=== PATIENT | female | born 1995 | race Caucasian/White ===

== ENCOUNTER 2016-08-29 19:08 | Emergency (ER) | payer OTHER ==
[~2016-08-29] VITALS: Ht 162.6 cm; Wt 52.0 kg
[~2016-08-29 19:08] MED LIST: PENVK500 PO
[2016-08-29 19:09] VITALS: BP 124/74; PULSE 79; RESP 14; TEMP 98; O2SAT 98
[2016-08-29 22:31] LABS: ANION GAP 8 MEQ/L (5-15); AST (GOT) 13 U/L (16-38); BICARBONATE 26.6 MEQ/L (21.0-32.0); BLOOD UREA NITROGEN 19 MG/DL (7-18); CHLORIDE 105 MEQ/L (98-107); GLOMERULAR FILTRATION RATE 84 ML/MIN (>89); POTASSIUM 3.6 MEQ/L (3.5-5.1); SODIUM (NA) 140 MEQ/L (136-145)
[2016-08-29] MEDS ORDERED: SODIUM CHLOR 0.9% 1000 ML INJ 1,000 ML IV SCH (22:32)
--- NOTE | 2016-08-29 22:32 | PD ---
HPI Chief Complaint: Numbness/Tingling Time Seen by Provider: 22:23 Travel History International Travel<30 days: No Contact w/Intl Traveler<30days: No Traveled to known affect area: No History of Present Illness HPI 21-year-old female coming in with 1-2 week history of numbness to her posterior lower legs, and occasionally both forearms off and on for the past 2 weeks. Patient feels is becoming more frequent. Patient also states episodes of lightheadedness especially after changing position. Patient denies headache , back pain, or trauma. Patient has no history of thyroid issues in the past. Patient does state she eats once daily. Patient states she checked a test which was negative today. She states her last muscle. Was 6 weeks ago. Patient denies fever, chills, chest pain, palpitations, or other constitutional symptoms. Patient takes no medications. Patient does state she did use some cocaine approximately one week ago. She denies any other drug use currently. He has no known drug allergies. Patient is a full-time student. PFS Past Medical History ADHD: No Cancer: No Diabetes: No Diminished Hearing: No Psychiatric: No Immunizations Current: Yes Migraines: No Seizures: No Thyroid Disease: No Ulcer: No Influenza Vaccination: No ?: Not LMP: july 2016 Past Surgical History Appendectomy: No Cholecystectomy: No Other Surgery: No Social History Alcohol Use: Yes (socially) Tobacco Use: Yes (10-15 CIGS DAILY) Substance Use: Yes Allergies-Medications (Allergen,Severity, Reaction): Coded Allergies: No Known Allergies (Unverified , 08/29/16) Reported Meds & Prescriptions Reported Meds & Active Scripts Active Penicillin V Potassium 500 Mg Tab 500 Mg PO BID 10 Days Review of Systems Except as stated in HPI: all other systems reviewed are Neg General / Constitutional: No: Fever Eyes: No: Visual changes HENT: No: Headaches Cardiovascular: No: Chest Pain or Discomfort Respiratory: No: Shortness of Breath Gastrointestinal: No: Abdominal Pain Genitourinary: No: Dysuria Musculoskeletal: No: Pain Skin: No Rash Neurologic: No: Weakness Psychiatric: No: Depression Endocrine: No: Polydipsia Hematologic/Lymphatic: No: Easy Bruising Physical Exam Narrative GENERAL: Thin young lady in no acute distress. SKIN: Warm and dry. Normal color. Normal turgor. No signs of trauma. No open wounds. HEAD: Atraumatic. Normocephalic. EYES: Pupils equal and round. No scleral icterus. No injection or drainage. ENT: No nasal bleeding or discharge. Mucous membranes pink and moist. Pharynx is normal. NECK: Trachea midline. No JVD. Supple and nontender without palpable thyroid. CARDIOVASCULAR: Regular rate and rhythm. No murmurs gallops or rubs. RESPIRATORY: No accessory muscle use. Clear to auscultation. Breath sounds equal bilaterally. GASTROINTESTINAL: Abdomen soft, non-tender, nondistended. Hepatic and splenic margins not palpable. MUSCULOSKELETAL: Extremities without clubbing, cyanosis, or edema. No obvious deformities. NEUROLOGICAL: Awake and alert. No obvious cranial nerve deficits. Motor grossly within normal limits. Five out of 5 muscle strength in the arms and legs. Normal speech. Patient complains of sensation of pins and needles with palpation of the lower extremities otherwise no obvious focal deficits. PSYCHIATRIC: Appropriate mood and affect; insight and judgment normal. Data Data Last Documented VS Vital Signs Date Time Temp Pulse Resp B/P Pulse Ox O2 Delivery O2 Flow Rate FiO2 08/29/16 19:09 98.0 79 14 124/74 98 Room Air Orders Complete Blood Count With Diff (08/29/16 20:37) Comprehensive Metabolic Panel (08/29/16 20:37) Urinalysis - C+S If Indicated (08/29/16 22:32) Iv Access Insert/Monitor (08/29/16 22:32) Ecg Monitoring (08/29/16 22:32) Oximetry (08/29/16 22:32) Sodium Chlor 0.9% 1000 Ml Inj (Ns 1000 M (08/29/16 22:32) Sodium Chloride 0.9% Flush (Ns Flush) (08/29/16 22:45) Electrocardiogram (08/29/16 22:32) Ed Urine Pregnancytest Poc (08/29/16 22:32) Magnesium (Mg) (08/29/16 22:32) Westergren Sedimentation Rate (08/29/16 22:32) C-Reactive Protein (Crp) (08/29/16 22:32) Orthostatic Vital Signs (08/29/16 22:32) Thyroid Stimulating Hormone (08/29/16 22:32) Ct Brain W/O Iv Contrast(Rout) (08/29/16 ) Labs Laboratory Tests Test 08/29/16 21:12 White Blood Count 8.2 TH/MM3 Red Blood Count 5.04 MIL/MM3 Hemoglobin 15.1 GM/DL Hematocrit 44.3 % Mean Corpuscular Volume 88.0 FL Mean Corpuscular Hemoglobin 30.0 PG Mean Corpuscular Hemoglobin 34.1 % Concent Red Cell Distribution Width 12.2 % Platelet Count 258 TH/MM3 Mean Platelet Volume 9.5 FL Neutrophils (%) (Auto) 53.2 % Lymphocytes (%) (Auto) 39.1 % Monocytes (%) (Auto) 5.7 % Eosinophils (%) (Auto) 1.4 % Basophils (%) (Auto) 0.6 % Neutrophils # (Auto) 4.4 TH/MM3 Lymphocytes # (Auto) 3.2 TH/MM3 Monocytes # (Auto) 0.5 TH/MM3 Eosinophils # (Auto) 0.1 TH/MM3 Basophils # (Auto) 0.1 TH/MM3 CBC Comment DIFF FINAL Differential Comment Sodium Level 140 MEQ/L Potassium Level 3.6 MEQ/L Chloride Level 105 MEQ/L Carbon Dioxide Level 26.6 MEQ/L Anion Gap 8 MEQ/L Blood Urea Nitrogen 19 MG/DL Creatinine 0.86 MG/DL Estimat Glomerular Filtration 84 ML/MIN Rate Random Glucose 83 MG/DL Calcium Level 9.1 MG/DL Total Bilirubin 0.3 MG/DL Aspartate Amino Transf 13 U/L (AST/SGOT) Alanine Aminotransferase 16 U/L (ALT/SGPT) Alkaline Phosphatase 91 U/L Total Protein 8.1 GM/DL Albumin 4.3 GM/DL [facility] Medical Decision Making Medical Screen Exam Complete: Yes Emergency Medical Condition: Yes Differential Diagnosis Electrolyte imbalance. Thyroid issue. Paresthesia. Dehydration. Possible anorexia. Narrative Course Patient is medically stable at time of exam. Labs ordered including CBC, CMP, magnesium, TSH, ESR, and CRP. Urinalysis and urine test is ordered. IV access is obtained patient is given 1000 mL normal saline bolus. Orthostatic vital signs are obtained. Patient is discussed with Dr. Gage who adds a head CT. 2300 hrs. patient care is assumed by Dr. Gage. Condition: Stable Jagjit Rosales Aug 29, 2016 22:32
[2016-08-29 22:34] LABS: AUTOMATED NEUTROPHIL # 4.4 TH/MM3 (1.8-7.7); BASOPHIL # 0.1 TH/MM3 (0-0.2); BASOPHIL % 0.6 % (0.0-2.0); EOSINOPHIL # 0.1 TH/MM3 (0-0.4); EOSINOPHIL % 1.4 % (0.0-4.0); HEMATOCRIT 44.3 % (35.0-46.0); HEMO FLAGS DIFF FINAL; LYMPH % 39.1 % (9.0-44.0); LYMPHOCYTE # 3.2 TH/MM3 (1.0-4.8); MEAN CORPUSCULAR HGB CONC 34.1 % (32.0-36.0); MONO % 5.7 % (0.0-8.0); NEUT % 53.2 % (16.0-70.0); PLATELET COUNT 258 TH/MM3 (150-450); RED BLOOD COUNT 5.04 MIL/MM3 (4.00-5.30); RED CELL DISTRIBUTION WIDTH 12.2 % (11.6-17.2); WHITE BLOOD COUNT 8.2 TH/MM3 (4.0-11.0)
[2016-08-29 22:36] LABS: ALKALINE PHOSPHATASE 91 U/L (45-117); ALT (GPT) 16 U/L (9-42); TOTAL BILIRUBIN ADULT 0.3 MG/DL (0.2-1.0)
[2016-08-29] MEDS ORDERED: SODIUM CHLORIDE 0.9% FLUSH 5 ML FLUSH IVF PRN (22:45)
[2016-08-30 00:03] LABS: BLOOD, URINE NEG (NEG); CALCIUM OXALATE CRYSTALS,URINE OCC /hpf; COMMENT (UR) CULTURE INDICATED; CULTURE IF INDICATED CULTURE INDICATED; GLUCOSE,URINE NEG (NEG); HYALINE CAST, URINE 1 /lpf (RARE); KETONE, URINE NEG (NEG); MUCUS URINE FEW /lpf (OCC); NITRITE,URINE NEG (NEG); PH, URINE 5.5 (5.0-8.5); SQUAMOUS EPITHELIAL CELL URINE 7 /hpf (0-5); URINE COLOR YELLOW (YELLW/STRAW)
[2016-08-30 00:12] LABS: MAGNESIUM 2.1 MG/DL (1.5-2.5)
[2016-08-30] MEDS ORDERED: METOCLOPRAMIDE HCL 10 MG TAB PO ONE (00:15)
[2016-08-30] MEDS ORDERED: KETOROLAC TROMETHAMINE 60 MG/2 ML (IM) VIAL IM ONE (00:15)
--- NOTE | 2016-08-30 00:20 | PD ---
Data Data Last Documented VS Vital Signs Date Time Temp Pulse Resp B/P Pulse Ox O2 Delivery O2 Flow Rate FiO2 08/29/16 19:09 98.0 79 14 124/74 98 Room Air Orders Complete Blood Count With Diff (08/29/16 20:37) Comprehensive Metabolic Panel (08/29/16 20:37) Urinalysis - C+S If Indicated (08/29/16 22:32) Iv Access Insert/Monitor (08/29/16 22:32) Ecg Monitoring (08/29/16 22:32) Oximetry (08/29/16 22:32) Sodium Chlor 0.9% 1000 Ml Inj (Ns 1000 M (08/29/16 22:32) Sodium Chloride 0.9% Flush (Ns Flush) (08/29/16 22:45) Electrocardiogram (08/29/16 22:32) Ed Urine Pregnancytest Poc (08/29/16 22:32) Magnesium (Mg) (08/29/16 22:32) Westergren Sedimentation Rate (08/29/16 22:32) C-Reactive Protein (Crp) (08/29/16 22:32) Orthostatic Vital Signs (08/29/16 22:32) Thyroid Stimulating Hormone (08/29/16 22:32) Ct Brain W/O Iv Contrast(Rout) (08/29/16 ) Beta Hcg (Quant/Titer) (08/29/16 23:09) Urine Culture (08/29/16 23:00) Ketorolac Inj (Toradol Inj) (08/30/16 00:15) Metoclopramide (Reglan) (08/30/16 00:15) Labs Laboratory Tests Test 08/29/16 08/29/16 21:12 23:00 White Blood Count 8.2 TH/MM3 Red Blood Count 5.04 MIL/MM3 Hemoglobin 15.1 GM/DL Hematocrit 44.3 % Mean Corpuscular Volume 88.0 FL Mean Corpuscular Hemoglobin 30.0 PG Mean Corpuscular Hemoglobin 34.1 % Concent Red Cell Distribution Width 12.2 % Platelet Count 258 TH/MM3 Mean Platelet Volume 9.5 FL Neutrophils (%) (Auto) 53.2 % Lymphocytes (%) (Auto) 39.1 % Monocytes (%) (Auto) 5.7 % Eosinophils (%) (Auto) 1.4 % Basophils (%) (Auto) 0.6 % Neutrophils # (Auto) 4.4 TH/MM3 Lymphocytes # (Auto) 3.2 TH/MM3 Monocytes # (Auto) 0.5 TH/MM3 Eosinophils # (Auto) 0.1 TH/MM3 Basophils # (Auto) 0.1 TH/MM3 CBC Comment DIFF FINAL Differential Comment Sodium Level 140 MEQ/L Potassium Level 3.6 MEQ/L Chloride Level 105 MEQ/L Carbon Dioxide Level 26.6 MEQ/L Anion Gap 8 MEQ/L Blood Urea Nitrogen 19 MG/DL Creatinine 0.86 MG/DL Estimat Glomerular Filtration 84 ML/MIN Rate Random Glucose 83 MG/DL Calcium Level 9.1 MG/DL Total Bilirubin 0.3 MG/DL Aspartate Amino Transf 13 U/L (AST/SGOT) Alanine Aminotransferase 16 U/L (ALT/SGPT) Alkaline Phosphatase 91 U/L Total Protein 8.1 GM/DL Albumin 4.3 GM/DL Erythrocyte Sedimentation Rate 1 mm/hr Magnesium Level 2.1 MG/DL C-Reactive Protein LESS THAN 0.29 MG/DL Thyroid Stimulating Hormone 1.040 uIU/ML 3rd Gen Urine Color YELLOW Urine Turbidity HAZY Urine pH 5.5 Urine Specific Burns 1.033 Urine Protein TRACE mg/dL Urine Glucose (UA) NEG mg/dL Urine Ketones NEG mg/dL Urine Occult Blood NEG Urine Nitrite NEG Urine Bilirubin NEG Urine Urobilinogen LESS THAN 2.0 MG/DL Urine Leukocyte Esterase LARGE Urine RBC 4 /hpf Urine WBC 10 /hpf Urine Squamous Epithelial 7 /hpf Cells Urine Calcium Oxalate Crystals OCC /hpf Urine Hyaline Casts 1 /lpf Urine Mucus FEW /lpf Microscopic Urinalysis Comment CULTURE INDICATED MDM Supervised Visit with JESUSITA: Yes Narrative Course I, Dr. Gage, have reviewed the advance practice practitioner's documentation and am in agreement, met with the patient face to face, made the diagnosis, and the medical decision making was done by me. See his note for further details. Briefly this is a 21-year-old female presenting with 1-2 week history of numbness to her posterior lower legs and occasionally bilateral forearms. She denies having any motor deficits. She admits to using cocaine approximately one week ago, but denies regular drug use and denies IV drug use. No fevers, chills, cough, or recent illness. She was initially evaluated by my PA. While waiting in the emergency department the patient became very agitated that test results were taking too long and she began to yell and complain, stating that she wants to leave. She is refusing x-ray of her left ankle/leg. EMR shows that the patient has been here in the past for mood disorders and polysubstance abuse. On my assessment of the patient she is complaining of bilateral leg numbness from the knee down. She has normal range of motion in all of her extremities and normal muscle strength in all of her extremities. She ambulated without difficulty to the nurse's station to complain. CBC is unremarkable. ESR is 1. CMP is unremarkable. Magnesium is 2.1. CRP is less than 0.29. Patient denies back pain and there is no midline vertebral tenderness. I do not believe the patient has an epidural abscess or cord compression causing her symptoms. UA shows hazy urine, large leukocyte esterase , 4 rbc's, 10 wbc's, occasional calcium oxalate crystals, few mucus, culture indicated. CT head read as negative noncontrast CT brain. Patient was made aware of all findings. Again she has normal motor strength in her lower extremities. She is stable for discharge home with outpatient follow-up with a neurologist and primary care physician this week. I will start her on Macrobid for her UA findings. She was informed on when to return to the emergency department. Diagnosis Primary Impression: Paresthesia of both legs Additional Impression: UTI (urinary tract infection) Qualified Code: N39.0 - Urinary tract infection without hematuria, site unspecified Referrals: Shahid Vanegas MD 3 days Neurologist Primary Care Physician 3 days Additional Instruction: Follow-up with neurologist Dr. Vanegas or a neurologist of your choice this week. Follow-up with a primary care physician this week. Return to the emergency room if worsening symptoms or any other concerns. Scripts Nitrofurantoin Monohydrate Macrocrystals (Macrobid)100 Mg Eng150 Mg PO BID 7 Days Ref 0 Prov:Pavel Gage MD 08/30/16 Disposition: 01 DISCHARGE HOME Condition: Stable Pavel Gage MD Aug 30, 2016 00:20
--- NOTE | 2016-08-30 00:52 | RADRPT ---
EXAM DATE/TIME: 08/30/2016 00:00 [facility] COMPARISON: CT BRAIN W/O CONTRAST, November 30, 2012, 19:07. INDICATIONS : Headache. RADIATION DOSE: 37.81 CTDIvol (mGy) MEDICAL HISTORY : None SURGICAL HISTORY : None. ENCOUNTER: Initial ACUITY: 1 day PAIN SCALE: 10/10 LOCATION: cranial TECHNIQUE: Multiple contiguous axial images were obtained of the head. Using automated exposure control and adj ustment of the mA and/or kV according to patient size, radiation dose was kept as low as reasonably a chievable to obtain optimal diagnostic quality images. FINDINGS: CEREBRUM: The ventricles are normal for age. No evidence of midline shift, mass lesion, hemorrhage or acute in farction. No extra-axial fluid collections are seen. POSTERIOR FOSSA: The cerebellum and brainstem are intact. The 4th ventricle is midline. The cerebellopontine angle i s unremarkable. EXTRACRANIAL: The visualized portion of the orbits is intact. SKULL: The calvaria is intact. No evidence of skull fracture. CONCLUSION: Negative noncontrast CT brain. Dom Conner MD on August 30, 2016 at 0:50 Board Certified Radiologist. This report was verified electronically.
[2016-08-30] MEDS ORDERED: MACR100C2 PO (00:56)
[2016-08-30 04:11] LABS: BETA HCG QUANT LESS THAN 1 MIU/ML (0-5)
--- NOTE | 2016-09-01 22:31 | EKG ---
Date Performed: 08/29/2016 Time Performed: 23:01:18 PTAGE: 21 years EKG: Sinus rhythm NORMAL ECG NO PREVIOUS TRACING DOCTOR: Gigi Santos Interpretating Date/Time 09/01/2016 22:30:53
== END 2016-08-30 01:40 | disposition home or self-care (01) ==
LOC: NEPE 19:08
DX: R20.9 Unspecified disturbances of skin sensation (principal); N39.0 Urinary tract infection, site not specified; R51 Headache
CPT/HCPCS: 70450; 80053; 81001; 83735; 84443; 84702; 84703; 85025; 85652; 86140; 87086; 93005; 96372; 99284; J1885

== ENCOUNTER 2016-11-13 20:45 | Emergency (ER) | payer OTHER ==
[~2016-11-13] VITALS: Ht 162.6 cm; Wt 56.8 kg
[~2016-11-13 20:45] MED LIST changes: +MACR100C2 PO
[2016-11-13 20:48] VITALS: BP 116/77; RESP 16; TEMP 97.7; O2SAT 99
[2016-11-13 21:48] LABS: BACTERIA, URINE MOD /hpf; BLOOD, URINE NEG (NEG); COMMENT (UR) CULTURE INDICATED; CULTURE IF INDICATED CULTURE INDICATED; GLUCOSE,URINE NEG (NEG); KETONE, URINE NEG (NEG); MUCUS URINE FEW /lpf (OCC); NITRITE,URINE NEG (NEG); SQUAMOUS EPITHELIAL CELL URINE 14 /hpf (0-5); URINE COLOR YELLOW (YELLW/STRAW)
[2016-11-13] MEDS ORDERED: MACR100C2 PO (22:02)
[2016-11-13] MEDS ORDERED: PHEN0.4T PO (22:02)
--- NOTE | 2016-11-13 22:02 | PD ---
HPI Chief Complaint: Complaint Time Seen by Provider: 21:29 Travel History International Travel<30 days: No Contact w/Intl Traveler<30days: No Traveled to known affect area: No History of Present Illness HPI 21-year-old female here for evaluation of possible UTI. The patient has had some dysuria, cloudy urine, and cramping which mainly occurs in the morning upon first void. She denies fevers or chills. Currently she has no abdominal pain. No nausea or vomiting. No diarrhea. No vaginal bleeding or discharge. PFSH Past Medical History ADHD: No Cancer: No Diabetes: No Diminished Hearing: No Psychiatric: No Immunizations Current: Yes Migraines: No Seizures: No Thyroid Disease: No Ulcer: No ?: Unknown LMP: 11/02/2016 Past Surgical History Surgical History: No Previous Surgery Appendectomy: No Cholecystectomy: No Other Surgery: No Social History Alcohol Use: Yes (socially) Tobacco Use: Yes (10-15 CIGS DAILY) Substance Use: Yes Allergies-Medications (Allergen,Severity, Reaction): Coded Allergies: No Known Allergies (Unverified , 11/13/16) Reported Meds & Prescriptions Reported Meds & Active Scripts Active Macrobid (Nitrofurantoin Monoh/Nitrofur Macro) 100 Mg Cap 100 Mg PO BID 7 Days Penicillin V Potassium 500 Mg Tab 500 Mg PO BID 10 Days Review of Systems Except as stated in HPI: all other systems reviewed are Neg Physical Exam Narrative GENERAL: Well-developed, well-nourished, comfortable, no acute distress. SKIN: Focused skin assessment warm/dry. HEAD: Atraumatic. Normocephalic. EYES: Pupils equal and round. No scleral icterus. No injection or drainage. ENT: Mucous membranes pink and moist. CARDIOVASCULAR: Regular rate and rhythm. No murmur appreciated. RESPIRATORY: No accessory muscle use. Clear to auscultation. Breath sounds equal bilaterally. GASTROINTESTINAL: Abdomen soft, non-tender, nondistended. Normal bowel sounds. MUSCULOSKELETAL: No obvious deformities. No clubbing. No cyanosis. No edema. NEUROLOGICAL: Awake and alert. No obvious cranial nerve deficits. Motor grossly within normal limits. Normal speech. PSYCHIATRIC: Appropriate mood and affect; insight and judgment normal. Data Data Last Documented VS Vital Signs Date Time Temp Pulse Resp B/P Pulse Ox O2 Delivery O2 Flow Rate FiO2 11/13/16 20:48 97.7 16 116/77 99 Room Air Orders Urinalysis - C+S If Indicated (11/13/16 21:01) Ed Urine Pregnancytest Poc (11/13/16 21:01) Urine Culture (11/13/16 21:20) Labs Laboratory Tests Test 11/13/16 21:20 Urine Color YELLOW Urine Turbidity HAZY Urine pH 7.0 Urine Specific Rebecca 1.025 Urine Protein TRACE mg/dL Urine Glucose (UA) NEG mg/dL Urine Ketones NEG mg/dL Urine Occult Blood NEG Urine Nitrite NEG Urine Bilirubin NEG Urine Urobilinogen 2.0 MG/DL Urine Leukocyte Esterase MOD Urine RBC 2 /hpf Urine WBC 6 /hpf Urine Squamous Epithelial 14 /hpf Cells Urine Amorphous Sediment RARE Urine Bacteria MOD /hpf Urine Mucus FEW /lpf Microscopic Urinalysis Comment CULTURE INDICATED MDM Medical Decision Making Medical Screen Exam Complete: Yes Emergency Medical Condition: Yes Differential Diagnosis UTI, cystitis, PID Narrative Course Vital signs are within normal limits. UA shows hazy urine, moderate leukocyte esterase, 6 WBCs, moderate bacteria. Urine is negative. The patient's abdominal exam is benign. I do not believe she has an acute intra -abdominal process. She does not have any vaginal bleeding or discharge. I do not believe she has PID. She'll be discharged home with a prescription for Macrobid and Pyridium. PMD follow-up this week. She was informed on when to return to the emergency department. She verbalizes understanding and agreement with plan. Diagnosis Primary Impression: UTI (urinary tract infection) Qualified Code: N39.0 - Urinary tract infection without hematuria, site unspecified Referrals: Primary Care Physician 3 days Additional Instructions: Follow-up with a primary care physician this week. Return to the emergency department for worsening symptoms or any other concerns. Scripts Phenazopyridine (Pyridium)100 Mg [id number] Mg PO Q8H PRN (DYSURIA) #12 TAB Ref 0 Prov:Pavel Gage MD 11/13/16 Nitrofurantoin Monohydrate Macrocrystals (Macrobid)100 Mg [id number] Mg PO BID 7 Days Ref 0 Prov:Pavel Gage MD 11/13/16 Disposition: 01 DISCHARGE HOME Condition: Stable Pavel Gage MD Nov 13, 2016 22:02
[2016-11-13] MEDS ORDERED: NITROFURANTOIN MONOHYD MACROCR 100 MG CAP PO ONE (22:15)
[2016-11-13] MEDS ORDERED: PHENAZOPYRIDINE HCL 100 MG TAB PO ONE (22:15)
== END 2016-11-13 22:22 | disposition home or self-care (01) ==
LOC: NEPD 20:45
DX: N39.0 Urinary tract infection, site not specified (principal); B96.89 Other specified bacterial agents as the cause of diseases classified elsewhere
CPT/HCPCS: 81001; 84703; 87086; 99283

== ENCOUNTER 2017-09-27 05:34 | Inpatient (IN) | payer SELFPAY ==
[2017-09-27] VITALS (14 sets, daily range): BP systolic 119–148; BP diastolic 65–98; PULSE 47–74; RESP 16–18; TEMP 97.7–98.2; O2SAT 100
[~2017-09-27 05:34] MED LIST changes: +PHEN0.4T PO
[2017-09-27] MEDS ORDERED: OXYTOCIN 10 UNIT/ML AMP ONE (05:41)
[2017-09-27] MEDS ORDERED: LIDOCAINE HCL 1% 20 ML VIAL ONE (05:41)
--- NOTE | 2017-09-27 05:57 | PD ---
HPI Chief Complaint 37 weeks Contractions Date Seen: Sep 27, 2017 Time Seen: 05:35 Travel History International Travel<30 Days: No Contact w/Intl Traveler<30Days: No Known Affected Area: No History of Present Illness HPI Pt is a 22 yo who presents to ED via EMS with worsening contractions and feeling she has to push. Pt states EDC as 10/11/2017 making her 37 weeks and 6 days. Pt has had NO care this . She did have a visit to the Crisis center early in the where she given her EDC,. Pt admits to abusing heroin and cocaine during the , most recently 2 days ago. Pt states that she has been carol since last night. She reports active movements. No vaginal bleeding or leaking. Weeks Gestation: 37 Para: 0 : 1 History Past Medical History Narrative Medical Substance abuse- Cocaine and Heroin Obstetric History Obstetric History PRIMIGRAVIDA Past Surgical History Surgical History: No Previous Surgery Family History Family History: Negative Social History Alcohol Use: No Tobacco Use: Yes Substance Abuse: Yes (Cocaine/Heroin) Allergies-Medications (Allergen,Severity, Reaction): Coded Allergies: No Known Allergies (Unverified Allergy, Unknown, 09/27/17) Home Meds Active Scripts Phenazopyridine (Pyridium) 100 Mg Tab, 100 MG PO Q8H Y for DYSURIA, #12 TAB 0 Refills Prov:Pavel Gage MD 11/13/16 Nitrofurantoin Monohydrate Macrocrystals (Macrobid) 100 Mg Cap, 100 MG PO BID for Infection for 7 Days, CAP 0 Refills Prov:Pavel Gage MD 11/13/16 Nitrofurantoin Monohydrate Macrocrystals (Macrobid) 100 Mg Cap, 100 MG PO BID for Infection for 7 Days, CAP 0 Refills Prov:Pavel Gage MD 08/30/16 Penicillin V Potassium (Penicillin V Potassium) 500 Mg Tab, 500 MG PO BID for 10 Days, TAB Prov:Hazel New [employer] TECHNICIAN 09/29/15 Review of Systems Except as stated in HPI: all other systems reviewed are Neg Physical Exam Narrative GENERAL: Well-nourished, well-developed patient. SKIN: Warm and dry. HEAD: Normocephalic and atraumatic. EYES: No scleral icterus. No injection or drainage. ENT: No nasal drainage noted. Mucous membranes pink. Airway patent. NECK: Supple, trachea midline. No JVD. CARDIOVASCULAR: Regular rate and rhythm without murmurs, gallops, or rubs. RESPIRATORY: Breath sounds equal bilaterally. No accessory muscle use. BREASTS: Bilateral exam showed no masses , no retractions, no nipple discharge. ABDOMEN/GI: Abdomen soft, non-tender, bowel sounds present, no rebound, no guarding Gravid to [34] weeks size Fundal Height: [-] GENITOURINARY: External Genitalia: intact and normal in appearance BUS glands: [wnl] Cervix: [soft] Dilatation: [full dilatation] Effacement: [complete] Station: [on perineum] Presentation: [vertex] Membranes: [ruptured] at 05:39 Ful dilated with bulging membranes, ruptured her at 05:39 Uterine Contractions: [1-2 weeks] FHT's: Category: [1] Baseline: [130s] Reactive: [-] Variability: [moderate] Decels: [-] EXTREMITIES: No cyanosis or edema. BACK: Nontender without obvious deformity. No CVA tenderness. NEUROLOGICAL: Awake and alert. Motor and sensory grossly within normal limits. Five out of 5 muscle strength in all muscle groups. Normal speech. Data Data Vital Signs Reviewed: Yes Orders Orders Lidocaine 1% Inj (Xylocaine 1% Inj) (09/27/17 05:41) Ob (2e) Additional Admit Info (09/27/17 05:42) Oxytocin Inj (Pitocin Inj) (09/27/17 05:41) MDM Diagnosis Diagnosis: Primary Impression: Admitted to labor and delivery Additional Impressions: 37 weeks gestation of Substance abuse affecting in third trimester, antepartum Miguel Sims MD Sep 27, 2017 05:57
[2017-09-27] MEDS ORDERED: SODIUM CHLORIDE 0.9% FLUSH 10 ML FLUSH IV FLUSH PRN (06:00)
[2017-09-27] MEDS ORDERED: DOCUSATE SODIUM 50 MG/SENNA 8.6 MG TAB PO PRN (06:00)
[2017-09-27] MEDS ORDERED: ZOLPIDEM TARTRATE 5 MG TAB PO PRN (06:00)
[2017-09-27] MEDS ORDERED: ACETAMINOPHEN 325 MG TAB PO PRN (06:00)
[2017-09-27] MEDS ORDERED: ALUMINUM/MAGNESIUM/SIMETH 30 ML CUP PO PRN (06:00)
[2017-09-27] MEDS ORDERED: BENZOCAINE 20% TOPICAL SPRAY 60 ML CAN TOPICAL PRN (06:00)
[2017-09-27] MEDS ORDERED: WITCH HAZEL 50%/GLYCERIN 12.5% 40 PAD JAR TOPICAL PRN (06:00)
[2017-09-27] MEDS ORDERED: ONDANSETRON ODT 4 MG TAB PO PRN (06:00)
--- NOTE | 2017-09-27 06:09 | PD.OB.DELI ---
Weeks gestation: 37 Gest age assessed date: Sep 27, 2017 Gest age assessed time: 05:30 Pt started active labor?: Yes Active labor start date: Sep 26, 2017 Active labor start time: 21:00 Medical induction of labor?: No Artificial rupture of membrane: No Anesthesia: None Episiotomy: None Vaginal Delivery: Precipitous Presentation: Occiput anterior Nuchal Cord: None Delayed cord clamping (45 sec): Yes : Female Delivery date: Sep 27, 2017 Delivery time: 05:42 One Minute : 9 Five Minute : 9 Placenta: Spontaneous delivery Laceration: Vaginal laceration (smal left perurethral.superficial, non bleeding) Additional Information Pt arrived on L&D by EMS. Pt fully dilated and with a bulging bag with head on the perineum. Pt had no care during this . Admits to substance abuse. Miguel Sims MD Sep 27, 2017 06:09
[2017-09-27] MEDS: IBUPROFEN 800 MG TAB PO PRN ×2 (06:10→16:32)
--- NOTE | 2017-09-27 07:03 | HHI.HP ---
HPI Chief Complaint 37 weeks In labor, head on perineum Travel History International Travel<30 Days: No Contact w/Intl Traveler<30Days: No Known Affected Area: No History of Present Illness HPI Pt is a 22 yo who presents to ED via EMS with worsening contractions and feeling she has to push. Pt states EDC as 10/11/2017 making her 37 weeks and 6 days. Pt has had NO care this . She did have a visit to the Crisis center early in the where she given her EDC,. Pt admits to abusing heroin and cocaine during the , most recently 2 days ago. Pt states that she has been carol since last night. She reports active movements. No vaginal bleeding or leaking. On exam, pt was fully dilated with bulging membranes with head on the perineum. Pt ruptured here at 05:39 clear . Proceeded to deliver spontaneously. Weeks Gestation: 37 Para: 0 : 1 History Past Medical History Narrative Medical Multi-substance abuse, Cocaine and Heroin, most recent use 2 days ago. Obstetric History Obstetric History Primigravida Past Surgical History Surgical History: No Previous Surgery Family History Family History: Negative Social History Alcohol Use: No Tobacco Use: Yes Substance Abuse: Yes (cocaine/heroin, most recent use 2 days ago) Allergies-Medications (Allergen,Severity, Reaction): Coded Allergies: No Known Allergies (Unverified Allergy, Unknown, 09/27/17) Home Meds Active Scripts Phenazopyridine (Pyridium) 100 Mg Tab, 100 MG PO Q8H Y for DYSURIA, #12 TAB 0 Refills Prov:Pavel Gage MD 11/13/16 Nitrofurantoin Monohydrate Macrocrystals (Macrobid) 100 Mg Cap, 100 MG PO BID for Infection for 7 Days, CAP 0 Refills Prov:Pavel Gage MD 11/13/16 Nitrofurantoin Monohydrate Macrocrystals (Macrobid) 100 Mg Cap, 100 MG PO BID for Infection for 7 Days, CAP 0 Refills Prov:Pavel Gage MD 08/30/16 Penicillin V Potassium (Penicillin V Potassium) 500 Mg Tab, 500 MG PO BID for 10 Days, TAB Prov:Hazel New CHARTER COORDINATOR 09/29/15 Review of Systems Except as stated in HPI: all other systems reviewed are Neg Physical Exam Vital Signs Date Time Temp Pulse Resp B/P (MAP) Pulse Ox O2 Delivery O2 Flow Rate FiO2 09/27/17 06:45 51 144/88 (106) 09/27/17 06:29 18 09/27/17 06:28 64 141/87 (105) 09/27/17 06:00 74 132/65 (87) Narrative GENERAL: Well-nourished, well-developed patient. SKIN: Warm and dry. HEAD: Normocephalic and atraumatic. EYES: No scleral icterus. No injection or drainage. ENT: No nasal drainage noted. Mucous membranes pink. Airway patent. NECK: Supple, trachea midline. No JVD. CARDIOVASCULAR: Regular rate and rhythm without murmurs, gallops, or rubs. RESPIRATORY: Breath sounds equal bilaterally. No accessory muscle use. BREASTS: Bilateral exam showed no masses , no retractions, no nipple discharge. ABDOMEN/GI: Abdomen soft, non-tender, bowel sounds present, no rebound, no guarding Gravid to [35] weeks size Fundal Height: [-] GENITOURINARY: External Genitalia: intact and normal in appearance BUS glands: [wnl] Cervix: [soft] Dilatation: [fully dilated] Effacement: [effaced] Station: [on perineum] Presentation: [-] Membranes: [ruptured] at 05:39, clear Uterine Contractions: [2-3 minutes] FHT's: Category: [1] Baseline: [130s] Reactive: [-] Variability: [moderate] Decels: [none] EXTREMITIES: No cyanosis or edema. BACK: Nontender without obvious deformity. No CVA tenderness. NEUROLOGICAL: Awake and alert. Motor and sensory grossly within normal limits. Five out of 5 muscle strength in all muscle groups. Normal speech. Caprini VTE Risk Assessment Caprini VTE Risk Assessment: No/Low Risk (score <= 1) Caprini Risk Assessment Model Point Value = 1 Point Value = 2 Point Value = 3 Point Value = 5 Age 41-60 Minor surgery BMI > 25 kg/m2 Swollen legs Varicose veins or History of unexplained or recurrent spontaneous Oral contraceptives or hormone replacement Sepsis (< 1 month) Serious lung disease, including pneumonia (< 1 month) Abnormal pulmonary function Acute myocardial infarction Congestive heart failure (< 1 month) History of inflammatory bowel disease Medical patient at bed rest Age 61-74 Arthroscopic surgery Major open surgery (> 45 min) Laparoscopic surgery (> 45 min) Malignancy Confined to bed (> 72 hours) Immobilizing plaster cast Central venous access Age >= 75 History of VTE Family history of VTE Factor V Leiden Prothrombin [id number] Lupus anticoagulant Anticardiolipin antibodies Elevated serum homocysteine Heparin-induced thrombocytopenia Other congenital or acquired thrombophilia Stroke (< 1 month) Elective arthroplasty Hip, pelvis, or leg fracture Acute spinal cord injury (< 1 month) Prophylaxis Regimen Total Risk Factor Score Risk Level Prophylaxis Regimen 0-1 Low Early ambulation 2 Moderate Order ONE of the following: *Sequential Compression Device (SCD) *Heparin 5000 units SQ BID 3-4 Higher Order ONE of the following medications: *Heparin 5000 units SQ TID *Enoxaparin/Lovenox 40 mg SQ daily (WT < 150 kg, CrCl > 30 mL/min) *Enoxaparin/Lovenox 30 mg SQ daily (WT < 150 kg, CrCl > 10-29 mL/min) *Enoxaparin/Lovenox 30 mg SQ BID (WT < 150 kg, CrCl > 30 mL/min) AND/OR *Sequential Compression Device (SCD) 5 or more Highest Order ONE of the following medications: *Heparin 5000 units SQ TID (Preferred with Epidurals) *Enoxaparin/Lovenox 40 mg SQ daily (WT < 150 kg, CrCl > 30 mL/min) *Enoxaparin/Lovenox 30 mg SQ daily (WT < 150 kg, CrCl > 10-29 mL/min) *Enoxaparin/Lovenox 30 mg SQ BID (WT < 150 kg, CrCl > 30 mL/min) AND *Sequential Compression Device (SCD) Data Data Vital Signs Reviewed: Yes Orders Orders Lidocaine 1% Inj (Xylocaine 1% Inj) (09/27/17 05:41) Ob (2e) Additional Admit Info (09/27/17 05:42) Oxytocin Inj (Pitocin Inj) (09/27/17 05:41) Vital Signs (Adult) .ON ADMISSION (09/27/17 05:57) ^ Labor Status (09/27/17 05:57) ^ Non Stress Test (09/27/17 05:57) Vital Signs (Adult) .QSHIFT (09/27/17 05:59) Activity Oob Ad Martita (09/27/17 05:59) Ice / Cold Pack PRN (09/27/17 05:59) Discontinue Iv (09/27/17 05:59) Sitz Bath PRN (09/27/17 05:59) ^ Massage (09/27/17 05:59) ^ Rhogam (09/27/17 05:59) Urinary Catheter Management .PRN (09/27/17 05:59) Diet Regular Basic (09/27/17 Breakfast) Sodium Chloride 0.9% Flush (Ns Flush) (09/27/17 09:00) Sodium Chloride 0.9% Flush (Ns Flush) (09/27/17 06:00) Acetaminophen (Tylenol) (09/27/17 06:00) Ibuprofen (Motrin) (09/27/17 06:00) Benzocaine 20% Top Spr (Americaine 20% T (09/27/17 06:00) Witch Bia-Glycerin Pad (Tucks Pads) (09/27/17 06:00) Docusate Sodium-Senna (Zina-Colace) (09/27/17 06:00) Zolpidem (Ambien) (09/27/17 06:00) Bhwqipa-Dsfkj-Gwbfcbi Inj (M-M-R Ii Inj) (09/27/17 16:00) Sdws-Oea-Asqtfs (Booster) Inj (Boostrix (09/27/17 16:00) Al-Mag Hy-Si 40-40-4 Mg/Ml Liq (Mag-Al P (09/27/17 06:00) Ondansetron Odt (Zofran Odt) (09/27/17 06:00) Rubella Immune Status (09/27/17 06:00) Hepatitis Profile (09/27/17 06:00) Rapid Plasma Regin (Rpr) W Ttr (09/27/17 06:00) Complete Blood Count With Diff (09/27/17 06:00) No Care Spec Serology (09/27/17 06:00) Hiv Antibody Screen (09/27/17 06:00) Ob/Psych Drug Screen, Urine (09/27/17 06:02) Assessment/Plan Assessment and Plan Pt admitted to L&D. Arrived on OB ED fully dilated with head on the perineum. Bulging membranes which ruptured spontaneously here with clear fluid. Pt had NO care. Has substance abuse disorder with Heroin and Cocaine. Miguel Sims MD Sep 27, 2017 07:03
[2017-09-27 07:45] LABS: AUTOMATED NEUTROPHIL # 6.8 TH/MM3 (1.8-7.7); BASOPHIL % 0.3 % (0.0-2.0); HEMATOCRIT 38.4 % (35.0-46.0); HEMOGLOBIN 13.1 GM/DL (11.6-15.3); LYMPH % 18.9 % (9.0-44.0); LYMPHOCYTE # 1.6 TH/MM3 (1.0-4.8); MEAN CELL VOLUME 79.2 FL (80.0-100.0); MEAN CORPUSCULAR HGB CONC 34.1 % (32.0-36.0); MEAN PLATELET VOLUME 9.9 FL (7.0-11.0); MONO % 2.3 % (0.0-8.0); MONOCYTE # 0.2 TH/MM3 (0-0.9); NEUT % 78.5 % (16.0-70.0); PLATELET COUNT 267 TH/MM3 (150-450); RED BLOOD COUNT 4.85 MIL/MM3 (4.00-5.30); RED CELL DISTRIBUTION WIDTH 14.5 % (11.6-17.2); WHITE BLOOD COUNT 8.6 TH/MM3 (4.0-11.0)
[2017-09-27] MEDS ORDERED: HYDROmorphone HCL PF 2 MG/ML VIAL IV ONE (09:15)
[2017-09-27] MEDS ORDERED: METHYLERGONOVINE MALEATE 0.2 MG/ML VIAL ONE ×2 (09:37→09:47)
[2017-09-27 10:12] LABS: AUTOMATED NEUTROPHIL # 8.3 TH/MM3 (1.8-7.7); BASOPHIL % 0.1 % (0.0-2.0); HEMATOCRIT 26.3 % (35.0-46.0); HEMOGLOBIN 8.7 GM/DL (11.6-15.3); LYMPHOCYTE # 1.5 TH/MM3 (1.0-4.8); MEAN CELL VOLUME 79.8 FL (80.0-100.0); MEAN CORPUSCULAR HEMOGLOBIN 26.4 PG (27.0-34.0); MEAN CORPUSCULAR HGB CONC 33.1 % (32.0-36.0); MEAN PLATELET VOLUME 9.4 FL (7.0-11.0); MONOCYTE # 0.3 TH/MM3 (0-0.9); NEUT % 81.9 % (16.0-70.0); PLATELET COUNT 208 TH/MM3 (150-450); RED CELL DISTRIBUTION WIDTH 14.4 % (11.6-17.2); WHITE BLOOD COUNT 10.1 TH/MM3 (4.0-11.0)
[2017-09-27] MEDS ORDERED: METHYLERGONOVINE MALEATE 0.2 MG/ML VIAL IM ONE (10:15)
[2017-09-27] MEDS: SODIUM CHLORIDE 0.9% FLUSH 10 ML FLUSH IV FLUSH SCH (10:19)
--- NOTE | 2017-09-27 10:44 | HHI.OB ---
Subjective Post Operative Day: 0 Remarks Pt is a 22 yo who presented to OB ED fully dilated and head on perineum and proceeded to deliver precipitously. Pt gave her EDC as 10-11-2017. She had no care Pt has substance abuse disorder and admitted to cocaine and heroin use 2 days prior. She was noted to have superficial and non bleeding left periurethral tear and post vaginal. I have been called to see her with PPH Objective Vitals/I&O Vital Signs Date Time Temp Pulse Resp B/P (MAP) Pulse Ox O2 Delivery O2 Flow Rate FiO2 09/27/17 08:30 98.2 47 16 143/76 (98) 09/27/17 07:50 17 09/27/17 07:30 50 130/79 (96) 09/27/17 07:20 97.7 17 09/27/17 07:00 142/98 (113) 09/27/17 06:45 51 144/88 (106) 09/27/17 06:29 18 09/27/17 06:28 64 141/87 (105) 09/27/17 06:00 74 132/65 (87) Result Diagram: 09/27/17 0930 Objective Remarks GENERAL: Well-nourished, well-developed patient. CARDIOVASCULAR: Regular rate and rhythm without murmurs, gallops, or rubs. RESPIRATORY: Breath sounds equal bilaterally. No accessory muscle use. ABDOMEN/GI: Abdomen soft, non-tender, bowel sounds present. Incision: Clean, dry and intact. Fundus: Firm, non-tender at umbilicus. GENITOURINARY: Light to moderate bleeding. EXTREMITIES: No cyanosis or edema, non-tender, without signs of DVT. Medications and IVs Current Medications Medications (Trade) Dose Ordered Sig/Justin Route Start Time Stop Time Status Last Admin (NS Flush) 2 ml BID IV FLUSH 09/27/17 09:00 09/27/17 10:19 (NS Flush) 2 ml UNSCH PRN IV FLUSH 09/27/17 06:00 (Tylenol) 650 mg Q4H PRN PO 09/27/17 06:00 09/27/17 06:11 (Motrin) 800 mg Q8H PRN PO 09/27/17 06:00 09/27/17 06:10 (Americaine 20% Top Spr) 1 spray Q4H PRN TOPICAL 09/27/17 06:00 (Tucks Pads) 1 applic QID PRN TOPICAL 09/27/17 06:00 (Zina-Colace) 2 tab Q12H PRN PO 09/27/17 06:00 (Ambien) 5 mg HS PRN PO 09/27/17 06:00 (M-M-R Ii Inj) 0.5 ml ONCE ONCE SQ 09/27/17 16:00 09/27/17 16:01 (Boostrix Inj) 0.5 ml ONCE ONCE IM 09/27/17 16:00 09/27/17 16:01 (Mag-Al Plus Susp Liq) 15 ml Q8H PRN PO 09/27/17 06:00 (Zofran Odt) 4 mg Q6H PRN PO 09/27/17 06:00 Assessment/Plan Assessment and Plan Precipitous at 05:42 today. uterus is well contracted. Vitals are stable 140/80, 55b/min/ Lacerations are not bleeding. Methergine 0.2mg IM x 1. [place] inserted check CBC Will observe bleeding/urine output. Miguel Sims MD Sep 27, 2017 10:44
[2017-09-27] MEDS ORDERED: OXYTOCIN 30 UNITS-500ML PREMIX 0 ML ONE (12:49)
[2017-09-27] MEDS ORDERED: diphenhydrAMINE HCL 25 MG CAP PO PRN (14:15)
[2017-09-27] MEDS ORDERED: DIPHTH/TETANUS/ACEL PERTUSSIS (BOOSTER) 0.5 ML VIAL/PFS IM ONE (16:00)
[2017-09-27] MEDS ORDERED: MEASLES, MUMPS, RUBELLA VACCINE 0.5 ML VIAL SQ ONE (16:00)
[2017-09-28 08:05] VITALS: BP 108/71; PULSE 50; RESP 12; TEMP 98.2
--- NOTE | 2017-09-28 08:26 | HHI.OB ---
Subjective Post Operative Day: 1 Remarks day # 1 AFVSS overnight. Decreased lochia. Denies dysuria. No breast tenderness. Appetite good. No nausea or vomiting. Positive flatus. Ambulating well. Denies calf pain or shortness of breath. Otherwise, she is doing well this morning and has no other complaints. Objective Vitals/I&O Vital Signs Date Time Temp Pulse Resp B/P (MAP) Pulse Ox O2 Delivery O2 Flow Rate FiO2 09/27/17 20:20 119/65 (83) 09/27/17 20:20 98.0 55 16 09/27/17 09:50 17 100 09/27/17 09:50 70 140/83 (102) 09/27/17 09:35 55 18 100 09/27/17 09:35 135/82 (99) 09/27/17 09:15 56 17 148/97 (114) 100 09/27/17 08:50 16 100 09/27/17 08:50 60 139/95 (110) 09/27/17 08:30 98.2 47 16 143/76 (98) Result Diagram: 09/27/17 0930 Objective Remarks GENERAL: Well-nourished, well-developed patient. CARDIOVASCULAR: Regular rate and rhythm without murmurs, gallops, or rubs. RESPIRATORY: Breath sounds equal bilaterally. No accessory muscle use. ABDOMEN/GI: Abdomen soft, non-tender, bowel sounds present. Incision: Clean, dry and intact. Fundus: Firm, non-tender at umbilicus. GENITOURINARY: Light to moderate bleeding. EXTREMITIES: No cyanosis or edema, non-tender, without signs of DVT. Medications and IVs Current Medications Medications (Trade) Dose Ordered Sig/Justin Route Start Time Stop Time Status Last Admin (NS Flush) 2 ml BID IV FLUSH 09/27/17 09:00 09/27/17 10:19 (NS Flush) 2 ml UNSCH PRN IV FLUSH 09/27/17 06:00 (Tylenol) 650 mg Q4H PRN PO 09/27/17 06:00 09/27/17 06:11 (Motrin) 800 mg Q8H PRN PO 09/27/17 06:00 09/27/17 16:32 (Americaine 20% Top Spr) 1 spray Q4H PRN TOPICAL 09/27/17 06:00 (Tucks Pads) 1 applic QID PRN TOPICAL 09/27/17 06:00 (Zina-Colace) 2 tab Q12H PRN PO 09/27/17 06:00 (Ambien) 5 mg HS PRN PO 09/27/17 06:00 (Mag-Al Plus Susp Liq) 15 ml Q8H PRN PO 09/27/17 06:00 (Zofran Odt) 4 mg Q6H PRN PO 09/27/17 06:00 (Benadryl) 25 mg Q6H PRN PO 09/27/17 14:15 09/27/17 14:17 Assessment/Plan Assessment and Plan 22 y/o female who is PPD# 1 s/p . -Continue routine care. -Percocet and Motrin PRN pain. -Encouraged OOB. Advised pelvic rest for 6 wks. -Re: ctrl, she would like to think about her choices for now. -D/c likely tomorrow robert Dillon,Paul Bell MD R1 Sep 28, 2017 08:26
[2017-09-28] MEDS: SODIUM CHLORIDE 0.9% FLUSH 10 ML FLUSH IV FLUSH SCH (09:00)
[2017-09-28 13:30] LABS: HEPATITIS A AB IGM NEGATIVE (NEGATIVE); HEPATITIS B CORE AB IGM NEGATIVE (NEGATIVE); HEPATITIS B SURFACE ANTIGEN NEGATIVE (NEGATIVE); HEPATITIS C AB IgG NEGATIVE (NEGATIVE)
== END 2017-09-28 13:13 | disposition home or self-care (01) | DRG 775 ==
LOC: HOBED 05:34 → H2EB 05:42 → H1EA 07:50
PROVIDERS: ADMIT Obstetrics & Gynecology; ATTEND Obstetrics & Gynecology
PROC: 10E0XZZ Delivery of Products of Conception, External Approach (ICD-10-PCS; principal; 2017-09-27)
DX: O62.3 Precipitate labor (principal); O99.324 Drug use complicating childbirth; F14.10 Cocaine abuse, uncomplicated; F11.90 Opioid use, unspecified, uncomplicated; O71.82 Other specified trauma to perineum and vulva; O09.33 Supervision of pregnancy with insufficient antenatal care, third trimester; Z37.0 Single live birth; Z3A.37 37 weeks gestation of pregnancy
CPT/HCPCS: 80074; 80307; 85025; 86592; 86703; 86762; 86900; 86901; 88307; G0481; J1170; J2210; J2590

== ENCOUNTER 2018-07-10 23:33 | Inpatient (IN) ==
[2018-07-10] MEDS ORDERED: Sod Chloride 0.9% Inj 800 ML IV.SIG SCH (23:45)
[2018-07-10] MEDS ORDERED: Vancomycin Inj 1,000 MG in Sodium Chlor 0.9% Inj 250 ML IV.SIG STA (23:58)
[2018-07-10] MEDS ORDERED: Acetaminophen 325 MG Tablet PO ONE (23:58)
[2018-07-10] MEDS ORDERED: Piperacil/Tazo 4.5 GM Premix 4.5 GM/100 ML BAG IV.SIG STA (23:58)
--- NOTE | 2018-07-11 00:30 | XR ---
EXAM DATE: 07/11/2018 12:22 AM EST AGE/SEX: 22 years / Female INDICATIONS: Fever. CLINICAL DATA: This is the patient's initial encounter. Patient reports that signs and symptoms have been present for 1 day and indicates a pain score of 0/10. MEDICAL/SURGICAL HISTORY: None. None. COMPARISON: No prior exams available for comparison. FINDINGS: Portable AP view of the chest demonstrates a normal-sized cardiac silhouette. No effusion, consolidat ion, or pneumothorax is identified. The bones and soft tissues demonstrate no acute finding. EKG line s overlie the patient. CONCLUSION: No acute cardiopulmonary abnormality is identified. Electronically signed by: Axel White MD 07/11/2018 12:29 AM EST
[2018-07-11] MEDS: Sod Chloride 0.9% Inj 1,000 ML IV.SIG SCH ×2 (00:37→13:45)
[2018-07-11 00:56] LABS: Baso % (Auto) 0.2 % (0.0-2.0); Eos % (Auto) 0.2 % (0.0-4.0); Hemoglobin 9.5 gm/dL (11.6-15.3); Lymph # (Auto) 2.6 th/mm3 (1.0-4.8); Lymph % (Auto) 23.8 % (9.0-44.0); Mean Corpuscular HGB Conc 32.8 % (32.0-36.0); Mean Corpuscular Hemoglobin 22.9 pg (27.0-34.0); Mean Corpuscular Volume 69.9 fL (80.0-100.0); Mono # (Auto) 0.8 th/mm3 (0.0-0.9); Mono % (Auto) 7.1 % (0.0-8.0); Neut # (Auto) 7.6 th/mm3 (1.8-7.7); Neut % (Auto) 68.7 % (16.0-70.0); Platelet Count 352 th/mm3 (150-450); Red Blood Count 4.15 mil/mm3 (4.00-5.30); Red Cell Distribution Width 16.2 % (11.6-17.2)
[2018-07-11 01:10] LABS: Alanine Aminotransferase 26 U/L (10-53); Albumin 2.7 g/dL (3.4-5.0); Anion Gap 8 meq/L (5-15); Aspartate Aminotransferase 24 U/L (15-37); Blood Urea Nitrogen 13 mg/dL (7-18); Calcium 7.8 mg/dL (8.5-10.1); Carbon Dioxide 27.9 meq/L (21.0-32.0); Chloride 98 meq/L (98-107); Glomerular Filtration Rate Greater Than 89 mL/min (>89); Glucose,Random 112 mg/dL (74-106); Magnesium 1.8 mg/dL (1.5-2.5); Potassium 3.8 meq/L (3.5-5.1); Sodium 134 meq/L (136-145)
[2018-07-11 01:14] LABS: Alkaline Phosphatase 85 U/L (45-117); Total Protein 7.4 g/dL (6.4-8.2)
--- NOTE | 2018-07-11 01:39 | ED ---
HPI General Chief complaint: Skin/Abscess/Foreign Body Stated complaint: Skin complaint Time Seen by Provider: 07/10/18 23:53 Source: patient and RN notes reviewed Mode of arrival: ambulatory History of Present Illness HPI narrative: 22yF presenting with abscess/ cellulitis, fever, and palpitations. The patient admits to IVDA and reports that she noticed a "boil" on her left forearm 3 days ago. She says "it popped open and drained" but since then has been noticing red streaking up her arm and across her chest. She also complains of pain in her left axilla. She denies fever but was found to have a temp of 102F on arrival. She also complains of myalgias, nausea, and palpitations. She does not have a history of MRSA or other skin infections in the past. Family history non-contributory. Related Data Allergies Allergy/AdvReac Type Severity Reaction Status Date / Time No Known Allergies Allergy Verified 07/10/18 23:39 Review of Systems ROS: all other systems reviewed are negative Constitutional Reports fatigue Eyes Denies blurry vision ENT Denies nasal congestion Cardiovascular Denies chest pain Respiratory Denies cough Genitourinary Denies dysuria Musculoskeletal Denies back pain Integumentary/Breasts Reports sores Neurologic Denies confusion Psychiatric Denies confusion PMFSH History History Provided By: Patient Medical History Medical History Patient denies medical problems (Acute) Surgical History Surgical History No history of previous surgery (Acute) Social History Social History Substance History: Active Abuse Second Hand Smoke Exposure: Yes Smoking Status: Current every day smoker Tobacco Type: Cigarettes How Often Do You Have a Drink Containing Alcohol: Never Recent Travel in [facility] within the Last 8 Weeks: No Recent Out of Country Travel within the Last 8 Weeks: No Immunization History Tetanus Immunization: <5 Years Exam Const General: healthy appearing and no acute distress HENMT Face and sinus: normal facial exam Eyes General: appearance normal, both eyes and all related structures Chest Chest: normal inspection of the chest Resp Effort & Inspection: normal respiratory effort Auscultation: no rhonchi and no wheezes Cardio Rate: tachycardic Rhythm: regular rhythm GI Inspection: non-distended Palpation: soft and nontender Skin Other: 2 cm circular raised erythematous tender lesion to dorsum of left forearm with purulent drainage, surrounding erythema/ warmth/ tenderness and lymphangitic streaking up left arm (+) tender left axillary adenopathy Erythema, warmth, tenderness overlying left breast Neuro General: alert, awake, oriented x3 and no focal motor deficits Psych Affect: normal affect Course Initial Documented Vital Signs Temperature 101.9 F H 07/10/18 23:34 Pulse Rate 130 H 07/10/18 23:34 Respiratory Rate 18 07/10/18 23:34 Blood Pressure 124/67 07/10/18 23:34 Pulse Oximetry 98 07/10/18 23:34 Last Documented Vital Signs Temperature 99.5 F 07/11/18 01:21 Pulse Rate 106 H 07/11/18 01:21 Respiratory Rate 20 07/11/18 01:21 Blood Pressure 128/80 07/11/18 01:21 Pulse Oximetry 99 07/11/18 01:21 Medical Decision Making [facility] Narrative Medical decision making narrative: Assessment: 22yF presenting with left arm abscess/ cellulitis with lymphangitic streaking up arm, axillary adenopathy, cellulitis overlying left breast, tachycardia, and fever Plan: Sepsis workup Fluids Antibiotics Addendum: Patient's tachycardia improved from 130s to 100s after IV fluid bolus , temp down to 99F after tylenol x 1 dose. Labs show normal lactic acid and no leukocytosis. Patient started on vanc/ zosyn to cover for MRSA, MSSA, strep. Case discussed with Dr. Alvares of [facility]. Medical Screen Exam Complete: Yes Emergency Medical Condition: Yes Differential Diagnosis Differential Diagnosis: Differential diagnosis includes, but is not limited to: abscess/ cellulitis, SIRS/ sepsis/ severe sepsis, bacteremia Lab Data Lab results reviewed: Yes I reviewed the patient's lab results. Result diagrams: 07/11/18 00:25 07/11/18 00:25 Lab Results 07/11/18 07/11/18 07/11/18 Range/Units 00:25 00:25 00:25 WBC 11.0 (4.0-11.0) th/mm3 RBC 4.15 (4.00-5.30) mil/mm3 Hgb 9.5 L (11.6-15.3) gm/dL Hct 29.0 L (35.0-46.0) % MCV 69.9 L (80.0-100.0) fL MCH 22.9 L (27.0-34.0) pg MCHC 32.8 (32.0-36.0) % RDW 16.2 (11.6-17.2) % Plt Count 352 (150-450) th/mm3 MPV 7.0 (7.0-11.0) fL Neut % (Auto) 68.7 (16.0-70.0) % Lymph % (Auto) 23.8 (9.0-44.0) % [place] % (Auto) 7.1 (0.0-8.0) % Eos % (Auto) 0.2 (0.0-4.0) % Baso % (Auto) 0.2 (0.0-2.0) % Neut # (Auto) 7.6 (1.8-7.7) th/mm3 Lymph # (Auto) 2.6 (1.0-4.8) th/mm3 Titus # (Auto) 0.8 (0.0-0.9) th/mm3 Eos # (Auto) 0.0 (0.0-0.4) th/mm3 Baso # (Auto) 0.0 (0.0-0.2) th/mm3 WBC Differential . Differential Comment Auto diff final Sodium 134 L (136-145) meq/L Potassium 3.8 (3.5-5.1) meq/L Chloride 98 (98-107) meq/L Carbon Dioxide 27.9 (21.0-32.0) meq/L Anion Gap 8 (5-15) meq/L BUN 13 (7-18) mg/dL Creatinine 0.68 (0.50-1.00) mg/dL Estimated GFR Greater than 89 (>89) mL/min Random Glucose 112 H (74-106) mg/dL Lactic Acid 0.6 (0.4-2.0) mmol/L Calcium 7.8 L (8.5-10.1) mg/dL Magnesium 1.8 (1.5-2.5) mg/dL Total Bilirubin 0.3 (0.2-1.0) mg/dL AST 24 (15-37) U/L ALT 26 (10-53) U/L Alkaline Phosphatase 85 (45-117) U/L Troponin I Less than 0.02 L (0.02-0.05) ng/mL Total Protein 7.4 (6.4-8.2) g/dL Albumin 2.7 L (3.4-5.0) g/dL Serum Alcohol Less than 3 (0-5) mg/dL Imaging Data Radiologist's impression: Chest X-Ray 07/11/18 00:00 CONCLUSION: No acute cardiopulmonary abnormality is identified. ECG Data Attestation: I personally reviewed and interpreted this ECG as follows: Interpretation: Rate: 120 BPM Rhythm: Sinus [place]: Normal Intervals: Normal intervals, no blocks, QTc 373 ms Q waves: aVL T waves: Upright, no inversions ST segments: No elevations or depressions Impression: Non-specific EKG, sinus tachycardia, no changes as compared to EKG from 08/29/2016. Discharge Plan Discharge Disposition Patient Disposition: ED Admit(ED Internal Use Only) Discharge Condition Condition: Stable Discharge Details Diagnosis: Sepsis, Cellulitis and abscess of upper arm and forearm, Intravenous drug abuse Physicians Team ED Provider: Julia Astorga Primary Care Provider: Primary Care Donita Carvajal Attending Provider: Faith Alvares Discharge Interventions Interventions: Vital Signs Last Done: 07/11/18 01:21 Status ED Status: Admitted Patient
[2018-07-11] MEDS ORDERED: Vancomycin Consult Pharmacy OTHER PRN (01:41)
[2018-07-11] MEDS ORDERED: Acetaminophen 325 MG Tablet PO PRN (01:42)
[2018-07-11] MEDS ORDERED: Bisacodyl 10 MG Supp RECTAL PRN (01:42)
--- NOTE | 2018-07-11 02:35 | P.HPIM ---
History of Present Illness Primary Care Physician: No Primary Care Physician History of Present Illness: This is a 22-year-old female with a PMH of IVDU who presented to the ER with complaints of left arm "boil" x4 days. States she's had worsening redness/ swelling of her arm, w/ streaking up her arm and into her chest/breast. Notes boil popped spontaneously and has been draining. Denies fever or chills. On arrival, BP 124/67, HR 130, O2 sat 98% on RA, Temp 101.9. CBC essentially unremarkable. Chemistry unremarkable. Troponin negative. Alcohol negative. CXR with no acute findings. S/p Vanc/Zosyn in ER. - Diagnosis (1) Sepsis (2) Cellulitis and abscess of upper arm and forearm (3) IVDU (intravenous drug user) Inpatient Certification: I certify that the inpatient services were ordered in accordance with Medicare regulations governing the order. This includes certification that hospital inpatient services are reasonable and necessary and in the case of services not specified as inpatient-only under 42 CFR 419.22(n), that they are appropriately provided as inpatient services in accordance to with the 2-midnight benchmark under 43 CFR 412.3(e) Estimated Total Length of Stay (Days): 2 Plans for Post Hospital Care: Not yet determined Review of Systems PAST FAMILY HISTORY: Reviewed. No h/o DM or CAD All other systems reviewed negative except as stated in HPI PMFSH - History History Provided By: Patient - Medical History Medical History: Medical History (Last Reviewed 07/11/18 @ 01:37 by Julia Astorga DO) Patient denies medical problems - Surgical History Surgical History: Surgical History (Last Reviewed 07/11/18 @ 01:37 by Julia Astorga DO) No history of previous surgery - Tobacco History Second Hand Smoke Exposure: Yes Tobacco Use In Past 30 Days: Yes Smoking Status: Current every day smoker Tobacco Type: Cigarettes - Alcohol History How Often Do You Have a Drink Containing Alcohol: Never - Substance Use History Substance History: Active Abuse - Travel History Recent Travel in the [place] Within the Last 8 Weeks: No Recent Travel Out of the Country Within the Last 8 Weeks: No - Immunization History Tetanus Immunization: <5 Years Medications and Allergies Active Medications: Active Medications Acetaminophen (Tylenol) 650 mg PO Q4H PRN PRN Reason: Temp > 100.4 Al Hydroxide/Mg Hydroxide (Milk Of Magnesia Liq) 30 ml PO Q12H PRN PRN Reason: Mild Constipation Bisacodyl (Dulcolax Supp) 10 mg RECTAL DAILY PRN PRN Reason: SEVERE CONSITIPATION Sodium Chloride (Ns Inj) 1,000 mls @ 0 mls/hr IV.SIG .Q0M [facility] Last Infusion: 07/11/18 01:10 Dose: Infused Sodium Chloride (Ns Inj) 800 mls @ 0 mls/hr IV.SIG .Q0M [facility] Last Infusion: 07/11/18 01:11 Dose: Infused Sodium Chloride (Ns Inj) 1,000 mls @ 100 mls/hr IV.CONT .Q10H [facility] Piperacillin/Tazobactam/Dextrose (Zosyn 4.5 Gm Premix) 4.5 gm in 100 mls @ 200 mls/hr IV.SIG Q6H [facility] Lactulose (Lactulose Liq) 30 ml PO DAILY PRN PRN Reason: SEVERE CONSITIPATION Lorazepam (Ativan Inj) 1 mg IV.PUSH Q2H PRN PRN Reason: AGITATION/WITHDRAWAL Ondansetron HCl (Zofran Inj) 4 mg IV.PUSH Q6H PRN PRN Reason: NAUSEA OR VOMITING Pharmacy Profile Note (Vancomycin Consult Pharmacy) 1 each OTHER UNSCH PRN PRN Reason: Pharmacy to dose Senna/Docusate Sodium (Zina-Colace) 1 tab PO BID [facility] Sennosides (Senokot) 17.2 mg PO Q12H PRN PRN Reason: Moderate Constipation Sodium Chloride (Ns Flush) 2 ml IV.FLUSH PRN PRN PRN Reason: FLUSH AFTER USING IV ACCESS Sodium Chloride (Ns Flush) 2 ml IV.FLUSH BID [facility] Allergies Allergy/AdvReac Type Severity Reaction Status Date / Time No Known Allergies Allergy Verified 07/10/18 23:39 Exam Vital signs: Vital Signs 07/10/18 23:34 07/11/18 01:21 Temperature 101.9 F H 99.5 F Pulse Rate 130 H 106 H Respiratory Rate 18 20 Blood Pressure 124/67 128/80 Pulse Oximetry 98 99 Intake & Output 07/10/18 07/10/18 07/11/18 06:59 18:59 06:59 Intake Total 1900 / 1900 Balance 1900 / 1900 Weight 49.895 kg Intake: IV 1900 / 1900 Zosyn 4.5 GM Premix 4.5 gm In 100 / 100 100 ml @ 200 mls/hr IV.SIG STAT STA Rx#:[id number] NS Inj 800 ML @ Wide Open IV. 1800 / 1800 SIG .Q0M [facility] Rx#:[id number] Narrative: PE: GENERAL: Pleasant young white in no acute distress. SKIN: Focused skin assessment warm and dry. HEENT: PERRLA, EOMI. No scleral icterus or conjunctival pallor. No lid lag or facial droop. CARDIOVASCULAR: Regular rate and rhythm. No obvious murmurs to auscultation. No chest tenderness to palpation. RESPIRATORY: No obvious rhonchi or wheezing. Clear to auscultation. Breath sounds equal bilaterally. GASTROINTESTINAL: Abdomen soft, non-tender, nondistended. BS normal. MUSCULOSKELETAL: Extremities without clubbing, cyanosis, or edema. No obvious deformities. LUE w/ open, raised lesion to left forearm, +streaking up left arm and into chest, +tenderness/warmth NEUROLOGICAL: Awake, alert and oriented x4. No focal neurologic deficits. Moving both upper and lower extremities spontaneously. PSYCHIATRIC: Appropriate mood and affect. Insight and judgment normal. Results - Labs CBC & Chem 7: 07/11/18 00:25 07/11/18 00:25 Labs: Short CBC 07/11/18 Range/Units 00:25 WBC 11.0 (4.0-11.0) th/mm3 Hgb 9.5 L (11.6-15.3) gm/dL Hct 29.0 L (35.0-46.0) % Plt Count 352 (150-450) th/mm3 [facility] 07/11/18 00:25 Sodium 134 L Potassium 3.8 Chloride 98 Carbon Dioxide 27.9 BUN 13 Creatinine 0.68 Calcium 7.8 L Cardiac Enzymes 07/11/18 Range/Units 00:25 Troponin I Less than 0.02 L (0.02-0.05) ng/mL Liver Function 07/11/18 Range/Units 00:25 Total Bilirubin 0.3 (0.2-1.0) mg/dL AST 24 (15-37) U/L ALT 26 (10-53) U/L Alkaline Phosphatase 85 (45-117) U/L Albumin 2.7 L (3.4-5.0) g/dL - Imaging Impressions Chest X-Ray 07/11/18 00:00 CONCLUSION: No acute cardiopulmonary abnormality is identified. Caprini VTE Risk Assessment Caprini VTE Risk Assessment: No/Low Risk (score <= 1) Caprini Risk Assessment Model: Point Value = 1 Point Value = 2 Point Value = 3 Point Value = 5 Age 41-60 Minor surgery BMI > 25 kg/m2 Swollen legs Varicose veins or History of unexplained or recurrent spontaneous Oral contraceptives or hormone replacement Sepsis (< 1 month) Serious lung disease, including pneumonia (< 1 month) Abnormal pulmonary function Acute myocardial infarction Congestive heart failure (< 1 month) History of inflammatory bowel disease Medical patient at bed rest Age 61-74 Arthroscopic surgery Major open surgery (> 45 min) Laparoscopic surgery (> 45 min) Malignancy Confined to bed (> 72 hours) Immobilizing plaster cast Central venous access Age >= 75 History of VTE Family history of VTE Factor V Leiden Prothrombin [id number] Lupus anticoagulant Anticardiolipin antibodies Elevated serum homocysteine Heparin-induced thrombocytopenia Other congenital or acquired thrombophilia Stroke (< 1 month) Elective arthroplasty Hip, pelvis, or leg fracture Acute spinal cord injury (< 1 month) Prophylaxis Regimen: Total Risk Factor Score Risk Level Prophylaxis Regimen 0-1 Low Early ambulation 2 Moderate Order ONE of the following: *Sequential Compression Device (SCD) *Heparin 5000 units SQ BID 3-4 Higher Order ONE of the following medications: *Heparin 5000 units SQ TID *Enoxaparin/Lovenox 40 mg SQ daily (WT < 150 kg, CrCl > 30 mL/min) *Enoxaparin/Lovenox 30 mg SQ daily (WT < 150 kg, CrCl > 10-29 mL/min) *Enoxaparin/Lovenox 30 mg SQ BID (WT < 150 kg, CrCl > 30 mL/min) AND/OR *Sequential Compression Device (SCD) 5 or more Highest Order ONE of the following medications: *Heparin 5000 units SQ TID (Preferred with Epidurals) *Enoxaparin/Lovenox 40 mg SQ daily (WT < 150 kg, CrCl > 30 mL/min) *Enoxaparin/Lovenox 30 mg SQ daily (WT < 150 kg, CrCl > 10-29 mL/min) *Enoxaparin/Lovenox 30 mg SQ BID (WT < 150 kg, CrCl > 30 mL/min) AND *Sequential Compression Device (SCD) Assessment and Plan - Assessment (1) Sepsis Code(s): A41.9 - Sepsis, unspecified organism Status: Acute (2) Cellulitis and abscess of upper arm and forearm Status: Acute (3) IVDU (intravenous drug user) Code(s): F19.90 - Other psychoactive substance use, unspecified, uncomplicated Status: Acute - Plan A/P: 1. Sepsis: Temp 101.9, HR 130, Source-LUE abscess/cellulitis, s/p Blood Cultures, Vanc/Zosyn in ER, follow up cultures, continue IV Abx, IVF for hydration. CXR w/ no acute findings. 2. LUE Abscess/Cellulitis: draining spontaneously, +streaking up left arm into chest, continue w/ IV Abx as above, follow up cultures. 3. IVDU: admits to ongoing IVDU, but interested in detox, Ativan prn for agitation/withdrawal. 4. DVT Prophylaxis: SCD/Teds 5. Social work for d/c planning as needed. 6. Case discussed w/ ER physician at length, labs/records/imaging reviewed by me.
[2018-07-11] MEDS: Sod Chloride 0.9% Inj 1,000 ML IV.CONT SCH ×3 (03:17→21:52)
[2018-07-11] MEDS: Piperacil/Tazo 4.5 GM Premix 4.5 GM/100 ML BAG IV.SIG SCH ×4 (05:19→23:10)
[2018-07-11] MEDS: Senna/Docusate Sodium 8.6/50 MG Tablet PO SCH ×2 (08:32→20:04)
[2018-07-11] MEDS: Vancomycin Inj 750 MG in Sodium Chlor 0.9% Inj 250 ML IV.SIG SCH (14:21)
[2018-07-12] MEDS: Vancomycin Inj 750 MG in Sodium Chlor 0.9% Inj 250 ML IV.SIG SCH (00:13)
[2018-07-12] MEDS: Piperacil/Tazo 4.5 GM Premix 4.5 GM/100 ML BAG IV.SIG SCH (05:08)
[2018-07-12] MEDS ORDERED: Pharmacy Ordered Lab Info OTHER ONE (12:45)
--- NOTE | 2018-07-12 14:30 | ECG ---
Date Performed: 07/10/2018 Time Performed: 23:47:24 PTAGE: 22 years EKG: SINUS TACHYCARDIA POSSIBLE RIGHT VENTRICULAR CONDUCTION DELAY ABNORMAL RHYTHM ECG Compared to PREVIOUS TRACING rate has increase with nonspecific ST changes PREVIOUS TRACIN 017 23.01 DOCTOR: Uche Sol Interpretating Date/Time 07/12/2018 14:29:45
== END 2018-07-12 06:57 | disposition home or self-care (01) ==
LOC: NEPE 23:33 → NEDA 07-11 01:43 → NEPHCDU 07-11 03:11
PROVIDERS: ADMIT Family Medicine; ATTEND Family Medicine